=== PATIENT | male | born 1985 | race Caucasian/White ===

== ENCOUNTER 2023-09-26 10:23 | Emergency (ER) | payer MEDICAID ==
[~2023-09-26] VITALS: Ht 180.3 cm; Wt 99.1 kg
[2023-09-26 10:48] VITALS: BP 117/66; PULSE 105; RESP 18; TEMP 98.1; O2SAT 97
[2023-09-26] MEDS ORDERED: NABU-72 PO (11:08)
[2023-09-26] MEDS ORDERED: PRED20TA2 PO (11:08)
== END 2023-09-26 11:17 | disposition home or self-care (01) ==
LOC: ER 10:23
DX: M77.8 Other enthesopathies, not elsewhere classified (principal)
CPT/HCPCS: 73080